=== PATIENT | female | born 1945 | race Caucasian/White ===

== ENCOUNTER 2017-02-23 09:43 | Day surgery (SDC) | payer MEDICARE ==
--- NOTE | ~2017-02-23 | EGD ---
EGD REPORT [facility] [address] [place] [id number] NAME: SHELIA CONTEH : [birth year] STATUS : REG [facility] PAT#: [id number] AGE: 71 ADM/REG DATE : 02/23/17 MR#: [id number] REPORT SERV DATE: 02/23/17 DICTATED BY: ANN IVEY DATE: 02/23/17 REPORT STATUS : Draft TRANSCRIBED BY: [facility] DATE: 02/23/17 Endoscopy Center Patient Name: Shelia Conteh Date of : 1945 Attending MD: ANN IVEY MD Procedure Date No Time: 02/23/2017 Procedure: Colonoscopy Indications: Abnormal CT of the GI tract, Change in bowel habits Referring MD: Manuel Sepulveda Medicines: as per anesthesia Complications: No immediate complications. Procedure: Pre-Anesthesia Assessment: - ASA Grade Assessment: III - A patient with severe systemic disease. After I obtained informed consent, the scope was passed under direct vision. Throughout the procedure, the patient's blood pressure, pulse, and oxygen saturations were monitored continuously. The PCF [id number] was introduced through the anus and advanced to the cecum, identified by appendiceal orifice and ileocecal valve. The colonoscopy was somewhat difficult due to multiple diverticula in the colon, significant looping and a tortuous colon. The patient tolerated the procedure. The quality of the bowel preparation was fair. Findings: The perianal and digital rectal examinations were normal. Multiple small and large-mouthed diverticula were found in the sigmoid colon, in the descending colon, in the transverse colon and in the ascending colon. Internal hemorrhoids were found during endoscopy and were mild. Impression: - Diverticulosis in the sigmoid colon, in the descending colon, in the transverse colon and in the ascending colon. - Internal hemorrhoids. Recommendation: - Repeat colonoscopy in 5 years for surveillance. Procedure Code(s): --- Professional --- 89111, Colonoscopy, flexible, proximal to splenic flexure; diagnostic, with or without collection of specimen(s) by brushing or washing, with or without colon decompression (separate procedure) EGD RE[address] [address] NAME: SHELIA CONTEH : [birth year] STATUS : REG [facility]#: [id number] AGE: 71 ADM/REG DATE : 02/23/17 MR#: [id number] REPORT SERV DATE: 02/23/17 DICTATED BY: ANN IVEY. DATE: 02/23/17 REPORT STATUS : Draft TRANSCRIBED BY: [employer] DATE: 02/23/17 Diagnosis Code(s): --- Professional --- K64.8, Other hemorrhoids K57.30, Diverticulosis of large intestine without perforation or abscess without bleeding R93.3, Abnormal findings on diagnostic imaging of other parts of digestive tract R19.4, Change in bowel habit CPT copyright 2013 [employer]. All rights reserved. The codes documented in this report are preliminary and upon chicken [employer] fish [employer] review may be revised to meet current compliance requirements. NAN IVEY MD 02/23/2017 11:30 AM This report has been signed electronically. Number of Addenda: 0 Note Initiated On: 02/23/2017 10:58 AM Scope Withdrawal Time 0 hours 7 minutes 15 seconds [address] [facility] [id number]
[~2017-02-23 09:43] MED LIST: 8 HOUR650 MG PO; ACTOS30 PO; ADVAIR250 INH; ADVIL PO; ALTA5 PO; AMARYL1 MG PO; ASAB PO; CRESTOR40 MG PO; DEMA20 PO; DIABETA5 PO; HYZAAR 100/25 T1 TAB PO; INSNOV7030 SC; JANUVIA100 MG PO; KLOR-CON M15 PO; KLOR-CON M2020 MEQ PO; LAM250 PO; LANTUS SC; LANTUSCART SC; LEVOTHYROXIN150 MCG PO; LIPITOR40 PO; LOFIB160 PO; LOP25 PO; MAX25 PO; MEVACOR PO; NORV5 PO; NOVOLOG SC; P20 PO; PCET PO; PLAVIX PO; TUMS E-X750 M2 PO; VALTREX5 PO; VITC500 PO
== END 2017-02-23 23:59 | disposition home or self-care (01) ==
LOC: DMU 09:43
DX: K64.8 Other hemorrhoids (principal); K57.30 Diverticulosis of large intestine without perforation or abscess without bleeding; J44.9 Chronic obstructive pulmonary disease, unspecified; I12.9 Hypertensive chronic kidney disease with stage 1 through stage 4 chronic kidney disease, or unspecified chronic kidney disease; E11.22 Type 2 diabetes mellitus with diabetic chronic kidney disease; N18.9 Chronic kidney disease, unspecified; E78.00 Pure hypercholesterolemia, unspecified; E03.9 Hypothyroidism, unspecified; E66.01 Morbid (severe) obesity due to excess calories; Z91.040 Latex allergy status; Z88.8 Allergy status to other drugs, medicaments and biological substances; Z79.4 Long term (current) use of insulin; Z79.82 Long term (current) use of aspirin; Z79.899 Other long term (current) drug therapy; Z98.41 Cataract extraction status, right eye; Z98.42 Cataract extraction status, left eye; Z90.49 Acquired absence of other specified parts of digestive tract; Z90.710 Acquired absence of both cervix and uterus
CPT/HCPCS: 82962